=== PATIENT | female | born 1965 | race Caucasian/White ===

== ENCOUNTER 2017-04-08 12:18 | Day surgery (SDC) | payer BC, OTHER ==
--- NOTE | 2017-04-03 22:28 | HP ---
AMENDED REPORT NOW INCLUDES COSIGNER DESIGNATION - ESIGNED BEFORE ADJUSTMENT PREOPERATIVE HISTORY AND PHYSICAL: DATE OF ADMISSION/SURGERY: 04/08/17 DATE OF OFFICE VISIT: 04/03/17 ATTENDING SURGEON: Dr. Cris Rick * (DICTATED BY JUAN VELASQUEZ) PROCEDURE: Left elbow ulnar nerve decompression. CHIEF COMPLAINT: Left hand numbness and tingling. HISTORY OF PRESENT ILLNESS: Natalia is a 52-year-old female, who presents to the clinic for numbness and tingling in her left hand especially in her left fourth and fifth digits. She has this problem for over 2 years. She continues to have the numbness and tingling. She decided not go to physical therapy because it would be minimally helpful. She also has some pain due to the numbness. She reports swelling in the hand. She has full range of motion of the elbow and wrist. She denies fevers, chills, chest pain, or shortness of breath. She has failed conservative measures and has therefore agreed to undergo left elbow ulnar nerve decompression with Dr. Rick on 04/08/17. PAST MEDICAL HISTORY: TMJ and arthritis. PAST SURGICAL HISTORY: . MEDICATIONS: 1. Ibuprofen 600 mg 3 times a day as needed for pain. 2. Advil 200 mg as needed. 3. Muscle relaxer. ALLERGIES: No known drug allergies. FAMILY HISTORY: Denies pertinent family history. SOCIAL HISTORY: She works as a preschool teacher's assistant. She denies tobacco or alcohol use. REVIEW OF SYSTEMS: A 14-point review of systems is reviewed with the patient. Positive for current complaint, otherwise negative. Denies history of DVT or PE. Denies prior complications with anesthesia. Denies chest pain or shortness of breath. Denies bleeding disorder. PHYSICAL EXAMINATION GENERAL: Well-developed, well-nourished, 52-year-old female, in no acute distress. Alert and oriented x3. Appropriate mood and affect. VITAL SIGNS: Height 66, weight 170. Pulse 68, blood pressure 122/78, respiratory rate 16, temperature 97.7, BMI 27.4. HEENT: Normocephalic, atraumatic. PERRLA. Throat clear. NECK: Supple. PULMONARY: Lungs clear to auscultation bilaterally. No wheezing, rhonchi, or rales. CARDIO: Regular rate and rhythm. S1, S2. No murmurs, gallops, or rubs. No edema. ABDOMEN: Positive bowel sounds. Soft, nontender. NEURO: Alert and oriented x3. Cranial nerves grossly intact. Sensation is intact to light touch. MUSCULOSKELETAL: Left upper extremity, full range of motion of the elbow, wrist , and hand. Positive Tinel's of the elbow. No evidence of ulnar snapping or subluxation of the ulnar nerve. Sensation is intact in the first dorsal webspace, the index finger, the long finger, diminished along the 2 ulnar digits. +2 radial pulse. Slightly weaker lieutenant ballistics compared to the contralateral side. DIAGNOSTIC STUDIES: EMG revealed left cubital tunnel syndrome of the elbow. IMPRESSION: Left cubital tunnel syndrome. PLAN: The patient is scheduled to undergo a left elbow ulnar nerve decompression with Dr. Rick on 04/08/17. Risks of surgery to include injury to blood vessels, nerves, surrounding structures; infection; bleeding; wound dehiscence; scarring were discussed with the patient. The patient would like to undergo the procedure. She will return to the office 10 to 14 days for followup and suture removal. Percocet will be used for postop pain management. JUAN VELASQUEZ [id number]/[facility] #: [id number] [facility]
[~2017-04-08 12:18] MED LIST: Buffered Lidocaine 0.9% SYRIN* 5 ML/SYR SYRINGE INTRADERM ONE; ceFAZolin 2 GM PREMIX (*) 50 ML IVPB ONE
[2017-04-08] MEDS ORDERED: fentaNYL* 50 MCG/ML 2 ML VIAL (100 MCG VIAL) ONE (14:35)
[2017-04-08] MEDS ORDERED: Midazolam* 1 MG/ML 2 ML VIAL (2 MG) ONE (14:35)
[2017-04-08] MEDS ORDERED: Bupivacaine 0.25% SDV* 30 ML ONE (17:37)
[2017-04-08] MEDS ORDERED: Dexamethasone IV* 4 MG/ML 1 ML (4 MG) ONE (18:26)
[2017-04-08] MEDS ORDERED: Propofol* 10 MG/ML 20 ML BTL IV PUSH ONE (18:26)
[2017-04-08] MEDS ORDERED: Lidocaine 2% PF * 5 ML VIAL ONE (18:26)
[2017-04-08] MEDS ORDERED: Ondansetron INJ* 2 MG/ML VIAL ONE (18:26)
[2017-04-08] MEDS ORDERED: Acetaminophen TAB* 325 MG PO PRN (18:37)
[2017-04-08] MEDS ORDERED: Ibuprofen TAB* 600 MG PO PRN (18:37)
[2017-04-08] MEDS ORDERED: Metoclopramide IV* 5 MG/ML 2 ML VIAL IV PRN (18:37)
[2017-04-08] MEDS ORDERED: Scopolamine 1.5 mg* PATCH TRANSDERM PRN (18:37)
[2017-04-08] MEDS ORDERED: PROCHLORPERAZINE INJ 5 MG/ML 2 ML VIAL IV PRN (18:37)
[2017-04-08 19:18] VITALS: BP 138/71
--- NOTE | 2017-04-12 06:05 | OP ---
CC: PCP OPERATIVE REPORT: DATE OF OPERATION: 04/08/17 DATE OF : 65 SURGEON: Cris Rick MD FERMENTATION OPERATOR: JUAN Chen An construction assistant was needed for the entirety of the case to help with positioning, retraction. ANESTHESIOLOGIST: Wanda Pineda MD PRE-OP DIAGNOSIS: Left cubital tunnel syndrome. POST-OP DIAGNOSIS: Left cubital tunnel syndrome. OPERATIVE PROCEDURE: Open in situ ulnar nerve release. INDICATIONS: Natalia Lees is a 52-year-old female with over 2-year history of left cubital syndrome confirmed by EMG. She delayed and elected to proceed with conservative treatment. Over the last 2 months, she noticed persistent numbness and tingling that was progressively getting worse. After extensive discussion of risks and benefits of operative versus nonoperative treatment, she has elected to proceed with operative surgery. Preoperatively, she was examined and found to not have any subluxation. We were planning for in situ release, but if any concerns, then we are going to plan for transposition. Risks include, but were not limited to, bleeding, infection, damage to nerves, vessels, surrounding structures, wound nonhealing, persistent pain, need for surgery, scarring, stiffness, incomplete relief of symptoms, risk of anesthesia, risk of DVT, she has elected to proceed. TOURNIQUET TIME: 22 minutes at 250 mmHg. DISPOSITION: Stable. COMPLICATIONS: None. ESTIMATED BLOOD LOSS: Minimal. DESCRIPTION OF PROCEDURE: The patient was greeted in the preoperative area by the attending surgeon. The correct extremity was marked and consent was confirmed. The patient brought back to the operating suite and she was placed in the supine position on the operating table. She underwent general anesthesia with LMA intubation after which the left elbow was prepped and draped in usual sterile fashion beginning with chlorhexidine soap, scrub, and alcohol wipe, and a final prep with ChloraPrep. A sterile tourniquet was then placed. After appropriate surgical pause indicating site, side, procedure, and administration of antibiotics, the Esmarch was used to exsanguinate the limb, the tourniquet was inflated to 250 mmHg. A #15 blade was used to make an incision along the medial aspect of the elbow between the medial epicondyle and to the olecranon over where the ulnar nerve visualized. Soft tissues were carefully dissected preserving any cross branches of the antebrachial cutaneous nerves. The nerve was first identified distally under the FCU fascia, which was carefully released with #15 blade. The nerve was exposed and freed from any adhesions and released from any scar from intermuscular septum, which was then tracked proximally. There was abundant fibrinous tissue that was present there. The nerve appeared to be somewhat edematous and swollen. The care was taken to preserve any vessels. Again, dissection was taken proximally to the Hills's ligament, which was released and appeared to be somewhat stenotic and scarred in and then dissection was taken more proximally into the arcade of Jadwin and medial intermuscular septum and this was carefully released from the nerve. All areas were inspected and identified to be released, there were no further areas of impingement. The elbow was taken through full range of motion. There was no evidence of subluxation. The wounds were copiously irrigated with sterile saline. Once release of all sites that were identified, the wound was closed in layers with limited 2-0 Vicryl, interrupted subcutaneous sutures and running 3-0 Monocryl. The wound was injected with 0.25 % Marcaine plain and well-padded splint was then placed, a posterior slab splint. The tourniquet was released for total time of 22 minutes. The digits were all pink and well perfused. The patient was woken from anesthesia and transferred to the PACU in stable condition. POSTOPERATIVE PLAN: She will follow up in the office in 10 to 14 days. She will be discharged on pain medications. DVT prophylaxis is considered, but deferred due to no previous personal or family history. I will see the patient back in 10 to 14 days and we will start her on physical therapy, work on range of motion. [id number]/[facility] #: [id number] [facility]el
== END 2017-04-08 19:38 | disposition home or self-care (01) ==
LOC: OR 12:18
PROVIDERS: ATTEND Orthopaedic Surgery
DX: G56.22 Lesion of ulnar nerve, left upper limb (principal)
CPT/HCPCS: J0690; J1100; J2250; J2405; J2704; J3010